=== PATIENT | female | born 1995 | race Caucasian/White ===

== ENCOUNTER 2019-06-26 20:27 | Emergency (ER) | payer SELFPAY ==
[2019-06-26 20:35] VITALS: BP 160/109
[2019-06-26] MEDS ORDERED: Cephalexin CAP* 500 MG PO ONE (21:01)
--- NOTE | 2019-06-26 21:02 | ED ---
Skin Complaint - HPI Summary HPI Summary: This patient is a 23 year old F presenting to [facility] with a chief complaint of rash on right leg near knee since 2329 on 06/25/19. She first noticed a bump a couple days ago, but it only started getting red and painful last night 2329. In the last 21 hours there has been swelling, redness, warmth, and tenderness. Pt reports pain while walking is a 5-6/10 in severity; however she otherwise does not feel pain. Pt denies any other health issues. - History of Current Complaint Chief Complaint: EDRashSkinAbscess Time Seen by Provider: 06/26/19 20:52 Stated Complaint: RIGHT KNEE RED HOT AREA ON KNEE THAT HAS GOT WORSE Hx Obtained From: Patient Onset/Duration: Started Hours Ago Skin Exposure Onset/Duration: Hours Ago Timing: Constant Onset Severity: Mild Current Severity: Moderate Pain Intensity: 6 Pain Scale Used: 0-10 Numeric Skin Location: Leg Character: Swelling, Pain, Redness Aggravating Symptom(s): Other: - Walking Alleviating Symptom(s): Nothing Associated Signs & Symptoms: Rash - Allergy/Home Medications Allergies/Adverse Reactions: Allergies Allergy/AdvReac Type Severity Reaction Status Date / Time No Known Allergies Allergy Verified 04/05/14 11:11 Home Medications: Home Medications Desogestrel-Ethinyl Estradiol [Enskyce 28 Tablet] 1 tab PO DAILY 06/26/19 [ History Confirmed 06/26/19] PMH/Surg Hx/FS Hx/Imm Hx Endocrine/Hematology History: Denies: Hx Diabetes History: Denies: Hx Renal Disease - Surgical History Surgical History: None - Immunization History Date of Tetanus Vaccine: unk Date of Influenza Vaccine: unk Infectious Disease History: No Infectious Disease History: Denies: Traveled Outside the [place] in Last 30 Days - Family History Known Family History: Positive: Diabetes - Social History Alcohol Use: None Substance Use Type: Reports: None Smoking Status (MU): Never Smoked Tobacco Review of Systems Negative: Fever Positive: Rash, Other - swelling, redness, warmth, and tenderness All Other Systems Reviewed And Are Negative: Yes Physical Exam - Summary Physical Exam Summary: Appearance: Well-appearing, Well-nourished, lying in bed comfortably Skin: Warm, dry, Approx 7 cm circular with a small degree of lymphangitic streaking extending posteriorly into the thigh Eyes: sclera anicteric, no conjunctival pallor ENT: mucous membranes moist, pharynx appears normal Neck: Supple, nontender Respiratory: Clear to auscultation, no signs of respiratory distress Cardiovascular: Normal S1, S2. No murmurs. Normal distal pulses in tibial and radial bilaterally. Abdomen: Soft, nontender, normal active bowel sounds present Musculoskeletal: Normal, Strength/ROM Intact Neurological: A&Ox3, awake and alert, mentation is normal, speech is fluent and appropriate Psychiatric: affect is normal, does not appear anxious or depressed Triage Information Reviewed: Yes Vital Signs On Initial Exam: Initial Vitals Temp Pulse Resp BP Pulse Ox 98.6 F 79 18 160/109 100 06/26/19 20:29 06/26/19 20:29 06/26/19 20:29 06/26/19 20:29 06/26/19 20:29 Vital Signs Reviewed: Yes Procedures - Sedation Patient Received Moderate/Deep Sedation with Procedure: No Diagnostics - Vital Signs Vital Signs Temp Pulse Resp BP Pulse Ox 06/26/19 20:29 98.6 F 79 18 160/109 100 - Laboratory Lab Statement: Any lab studies that have been ordered have been reviewed, and results considered in the medical decision making process. Course/Dx - Course Course Of Treatment: This patient is a 23 year old F presenting to [facility] with a chief complaint of rash on right lower leg since 2329 on 06/25/19. She first noticed a bump a couple days ago, but it only started getting red and painful last night 2329. In the last 21 hours there has been swelling, redness, warmth, and tenderness. Pt reports pain while walking is a 5-6/10 in severity; however she otherwise does not feel pain. Pt denies any other health issues. Physical exam findings are a approx 7 cm circular with a small degree of lymphangitic streaking extending posteriorly into the thigh. Patient will be discharged. The patient is agreeable with this plan. - Diagnoses Provider Diagnoses: Cellulitis Discharge ED - Sign-Out/Discharge Documenting (check all that apply): Patient Departure - Discharge - Discharge Plan Condition: Good Disposition: HOME Prescriptions: Cephalexin CAP* [Keflex CAP*] 500 mg PO QID #40 cap Patient Education Materials: Cellulitis (ED) Forms: *Work Release Referrals: [facility] [Outside] No Primary Care Phys,NOPCP [Primary Care Provider] - Additional Instructions: If it is not improving by Friday morning or if you are getting much worse sooner, come back and we may need to check for an abscess and/or add another antibiotic. - Billing Disposition and Condition Condition: GOOD Disposition: Home - Attestation Statements Document Initiated by Jay: Yes Documenting Scribe: Ramona Mckoy Provider For Whom Jay is Documenting (Include Credential): Mathew Matt MD Scribe Attestation: Ramona Ervin, scribed for Mathew Matt MD on 06/27/19 at 1957. Scribe Documentation Reviewed: Yes Provider Attestation: The documentation as recorded by the Ramona anderson accurately reflects the service I personally performed and the decisions made by , Mathew Matt MD Status of Scribe Document: Viewed
== END 2019-06-26 21:16 | disposition home or self-care (01) ==
LOC: ED 20:27
DX: L03.115 Cellulitis of right lower limb (principal)
CPT/HCPCS: 99282; A9270-GY